=== PATIENT | female | born 1945 | race Caucasian/White ===

== ENCOUNTER 2023-07-24 09:09 | Inpatient (IN) | payer MEDICARE, OTHER ==
[2023-07-24] VITALS (8 sets, daily range): BP systolic 123–137; BP diastolic 54–76; TEMP 97.9–99; O2SAT 91–98
[~2023-07-24] VITALS: Ht 154.9 cm; Wt 81.2 kg
[2023-07-24] MEDS: IPRATROPIUM NEB FS 0.5 MG/2.5 ML AMPUL.NEB NEB ONE (09:33)
[2023-07-24] MEDS: ALBUTEROL FS 2.5 MG/3 ML VIAL.NEB NEB ONE (09:33)
[2023-07-24] MEDS ORDERED: IPRATROPIUM NEB FS 0.5 MG/2.5 ML AMPUL.NEB ONE (09:35)
[2023-07-24] MEDS ORDERED: ALBUTEROL FS 2.5 MG/3 ML VIAL.NEB ONE (09:35)
[2023-07-24 09:45] LABS: BASOPHILS % (AUTO) 0.8 % (0.0-2.0); EOSINOPHILS # (AUTO) 0.1 K/uL (0.0-0.7); EOSINOPHILS % (AUTO) 1.8 % (0.0-6.0); HEMATOCRIT 44 % (33-45); HEMOGLOBIN 15.1 g/dL (11.5-14.8); LYMPHOCYTES # (AUTO) 1.2 K/uL (0.8-4.8); LYMPHOCYTES % (AUTO) 22.4 % (20.0-44.0); MEAN CORPUSCULAR HEMOGLOBIN 30 PG (26.0-33.0); MEAN CORPUSCULAR HGB CONC 34 g/dl (31.0-36.0); MEAN CORPUSCULAR VOLUME 89 fL (82-100); MONOCYTES # (AUTO) 0.7 K/uL (0.1-1.30); MONOCYTES % (AUTO) 12.7 % (2.0-12.0); NEUTROPHILS # (AUTO) 3.3 K/uL (1.8-8.9); NEUTROPHILS % (AUTO) 62.3 % (43.0-81.0); PLATELET COUNT (AUTO) 207 K/uL (150-450); RED BLOOD CELL COUNT(AUTO) 4.97 MIL/uL (4.0-5.2); RED CELL DISTRIBUTION WIDTH 14.1 % (11.5-15.0); WHITE BLOOD COUNT (AUTO) 5.2 K/uL (4.3-11.0)
[2023-07-24 09:56] LABS: CALCIUM, SERUM 8.9 mg/dL (8.5-10.1); CREATININE 0.8 mg/dL (0.6-1.3); POTASSIUM 3.4 mmol/L (3.5-5.1)
[2023-07-24 10:07] LABS: LACTIC ACID 1.1 mmol/L (0.4-2.0)
[2023-07-24 10:37] LABS: NT-PRO BNP 310 pg/mL (0-125)
[2023-07-24] MEDS ORDERED: AZEL137S7 BNOSTRILS (11:20)
[2023-07-24] MEDS ORDERED: THYR90TA PO (11:20)
[2023-07-24] MEDS ORDERED: CARV25TA2 PO (11:20)
[2023-07-24] MEDS ORDERED: GUAI600T53 PO (11:20)
[2023-07-24] MEDS ORDERED: SEMA1PEN SQ (11:20)
[2023-07-24] MEDS ORDERED: MONT10TA22 PO (11:20)
[2023-07-24] MEDS ORDERED: LEVA1.2528 IH (11:20)
[2023-07-24] MEDS ORDERED: CYAN100T9 PO (11:20)
[2023-07-24] MEDS ORDERED: BUDE10.22 INH (11:20)
[2023-07-24] MEDS ORDERED: ASPI-1169 PO (11:20)
[2023-07-24] MEDS ORDERED: FLUO40CA49 PO (11:20)
[2023-07-24] MEDS ORDERED: L. A1TAB10 PO (11:20)
[2023-07-24] MEDS ORDERED: VIT1CAPS9 PO (11:20)
[2023-07-24] MEDS ORDERED: CHOL200026 PO (11:20)
[2023-07-24] MEDS ORDERED: THEO300T46 PO (11:20)
[2023-07-24] MEDS ORDERED: OMEP20CA15 PO (11:20)
[2023-07-24] MEDS ORDERED: IOHEXOL-350 100 ML VIAL IV ONE (11:23)
[2023-07-24] MEDS ORDERED: ACETAMINOPHEN 325 MG TABLET PO PRN (13:30)
[2023-07-24] MEDS ORDERED: MAGNESIUM HYDROXIDE 30 ML UDC PO PRN (13:30)
[2023-07-24] MEDS ORDERED: ZOLPIDEM TARTRATE 5 MG TABLET PO PRN (13:30)
[2023-07-24] MEDS ORDERED: ONDANSETRON HCL/PF 4 MG/2 ML VIAL IVP PRN (13:30)
[2023-07-24] MEDS ORDERED: MAG HYDROX/AL HYDROX/SIMETH 30 ML UDC PO PRN (13:30)
[2023-07-24] MEDS ORDERED: Z GUARD REMEDY 4 OZ OINT TP PRN (13:30)
[2023-07-24] MEDS: ENOXAPARIN SODIUM 40 MG/0.4 ML DISP.SYRIN SQ SCH (14:45)
[2023-07-24] MEDS: CEFTRIAXONE 1 G in IV D5W 50 ML IV SCH (17:53)
[2023-07-24] MEDS: AZITHROMYCIN 500 MG in IV D5W 250 ML IV SCH (18:25)
[2023-07-24] MEDS: ALBUTEROL FS 2.5 MG/3 ML VIAL.NEB NEB PRN (19:12)
[2023-07-24] MEDS: IPRATROPIUM NEB FS 0.5 MG/2.5 ML AMPUL.NEB NEB PRN (19:13)
[2023-07-24] MEDS: GUAIFENESIN/D-METHORPHAN HB 5 ML UDC PO PRN (21:01)
[2023-07-25] VITALS (12 sets, daily range): BP systolic 136–149; BP diastolic 58–88; TEMP 97.5–98.4; O2SAT 90–98
[2023-07-25 06:47] LABS: BASOPHILS % (AUTO) 0.7 % (0.0-2.0); EOSINOPHILS # (AUTO) 0.1 K/uL (0.0-0.7); EOSINOPHILS % (AUTO) 1.9 % (0.0-6.0); HEMATOCRIT 44 % (33-45); HEMOGLOBIN 14.7 g/dL (11.5-14.8); LYMPHOCYTES # (AUTO) 2.3 K/uL (0.8-4.8); LYMPHOCYTES % (AUTO) 43.6 % (20.0-44.0); MEAN CORPUSCULAR HEMOGLOBIN 31 PG (26.0-33.0); MEAN CORPUSCULAR HGB CONC 34 g/dl (31.0-36.0); MEAN CORPUSCULAR VOLUME 90 fL (82-100); MONOCYTES # (AUTO) 0.8 K/uL (0.1-1.30); MONOCYTES % (AUTO) 15.3 % (2.0-12.0); NEUTROPHILS # (AUTO) 2.1 K/uL (1.8-8.9); NEUTROPHILS % (AUTO) 38.5 % (43.0-81.0); PLATELET COUNT (AUTO) 191 K/uL (150-450); RED BLOOD CELL COUNT(AUTO) 4.84 MIL/uL (4.0-5.2); RED CELL DISTRIBUTION WIDTH 14.2 % (11.5-15.0); WHITE BLOOD COUNT (AUTO) 5.3 K/uL (4.3-11.0)
[2023-07-25 07:08] LABS: CALCIUM, SERUM 9.2 mg/dL (8.5-10.1); CREATININE 0.7 mg/dL (0.6-1.3); MAGNESIUM 2.3 mg/dL (1.8-2.4); PHOSPHORUS 3.3 mg/dL (2.5-4.9); POTASSIUM 3.2 mmol/L (3.5-5.1)
[2023-07-25 07:43] LABS: THYROID STIMULATING HORMONE 2.601 uIU/mL (0.358-3.74)
[2023-07-25] MEDS: PANTOPRAZOLE 40 MG TABLET.DR PO SCH (08:28)
[2023-07-25] MEDS: ASPIRIN 81 MG TAB.CHEW PO SCH (08:58)
[2023-07-25] MEDS: CARVEDILOL 12.5 MG TABLET PO SCH (09:01)
[2023-07-25] MEDS ORDERED: HYDROCODONE BIT/HOMATROPINE 5 ML UDC PO PRN (09:30)
[2023-07-25] MEDS: IPRATROPIUM NEB FS 0.5 MG/2.5 ML AMPUL.NEB NEB SCH (09:30)
[2023-07-25] MEDS ORDERED: ALBUTEROL FS 2.5 MG/3 ML VIAL.NEB NEB SCH (09:30)
[2023-07-25] MEDS ORDERED: THEOPHYLLINE ANHYDROUS 200 MG TAB.SR.12H PO SCH (10:00)
[2023-07-25] MEDS ORDERED: THEOPHYLLINE ANHYDROUS 100 MG TAB.SR.12H PO SCH (11:00)
[2023-07-25] MEDS: methylPREDNISolone SOD SUCC 125 MG/2ML VIAL IV SCH (11:09)
[2023-07-25] MEDS: MONTELUKAST SODIUM (10MG) 10 MG TABLET PO SCH (11:09)
[2023-07-25] MEDS: POTASSIUM CHLORIDE 20 MEQ TAB.PRT.SR PO SCH (11:09)
[2023-07-25] MEDS: THEOPHYLLINE ANHYDROUS 100 MG CAP.ER.24H PO SCH (12:41)
[2023-07-25] MEDS: ALBUTEROL HALF STRENGTH 1.25 MG/3 ML VIAL.NEB NEB SCH (12:42)
[2023-07-25] MEDS: AZITHROMYCIN 250 MG TABLET PO SCH (17:12)
[2023-07-25] MEDS: BENZONATATE 100 MG CAPSULE PO PRN (20:09)
[2023-07-26] VITALS: BP 141/67; TEMP 97.9; O2SAT 95
[2023-07-26 04:00] VITALS: BP 145/71; TEMP 97.9; O2SAT 95
[2023-07-26 06:52] LABS: CREATININE 0.7 mg/dL (0.6-1.3); MAGNESIUM 2.1 mg/dL (1.8-2.4); PHOSPHORUS 3.1 mg/dL (2.5-4.9)
[2023-07-26 06:57] LABS: BASOPHILS % (AUTO) 0.2 % (0.0-2.0); HEMATOCRIT 43 % (33-45); HEMOGLOBIN 14.7 g/dL (11.5-14.8); LYMPHOCYTES # (AUTO) 1.1 K/uL (0.8-4.8); LYMPHOCYTES % (AUTO) 21.8 % (20.0-44.0); MEAN CORPUSCULAR HEMOGLOBIN 31 PG (26.0-33.0); MEAN CORPUSCULAR HGB CONC 34 g/dl (31.0-36.0); MEAN CORPUSCULAR VOLUME 89 fL (82-100); MONOCYTES # (AUTO) 0.3 K/uL (0.1-1.30); MONOCYTES % (AUTO) 5.9 % (2.0-12.0); NEUTROPHILS # (AUTO) 3.6 K/uL (1.8-8.9); NEUTROPHILS % (AUTO) 72.1 % (43.0-81.0); PLATELET COUNT (AUTO) 202 K/uL (150-450); RED BLOOD CELL COUNT(AUTO) 4.79 MIL/uL (4.0-5.2); RED CELL DISTRIBUTION WIDTH 13.8 % (11.5-15.0); WHITE BLOOD COUNT (AUTO) 5.1 K/uL (4.3-11.0)
[2023-07-26 07:30] VITALS: BP 157/64; TEMP 97.7; O2SAT 94
[2023-07-26] MEDS ORDERED: BENZ-13 PO (10:28)
[2023-07-26] MEDS ORDERED: PRED20TA PO (10:28)
[2023-07-26] MEDS ORDERED: DOXY-326 PO (10:28)
[2023-07-26 13:00] VITALS: O2SAT 95
[2023-07-26 13:11] VITALS: O2SAT 98
[2023-07-26 16:18] VITALS: BP 139/67
[2023-07-26 22:00] LABS: ABG BASE EXCESS 2.8 mmol/L; ABG OXYGEN SATURATION 91.1 % (92.0-98.5); ABG PCO2 37.5 mmHg (35.0-45.0); ABG PH 7.466 (7.350-7.450); ABG PO2 58.1 mmHg (75.0-100.0); ABG TOTAL HEMOGLOBIN 16.1 G/dL (12.0-16.0); AaDO2 46.7 mmHg; COHb 0.2 % (0.5-1.5); MetHb 0.4 % (0.0-1.5); O2Hb 90.6 % (94.0-97.0); SITE, ABG Right Radial; VENT MODE, BG RA 21%
== END 2023-07-26 17:15 | disposition home health service (06) | DRG 189 ==
LOC: ER 09:10 → TELE 12:17 → MED 07-26 13:08
PROVIDERS: ADMIT Student in an Organized Health Care Education/Training Program; ATTEND Nurse Practitioner Acute Care
DX: J96.01 Acute respiratory failure with hypoxia (principal); I50.23 Acute on chronic systolic (congestive) heart failure; E87.1 Hypo-osmolality and hyponatremia; J45.901 Unspecified asthma with (acute) exacerbation; E11.9 Type 2 diabetes mellitus without complications; E66.9 Obesity, unspecified; E87.6 Hypokalemia; I25.5 Ischemic cardiomyopathy; Z87.891 Personal history of nicotine dependence; Z88.0 Allergy status to penicillin; R94.31 Abnormal electrocardiogram [ECG] [EKG]; Z79.84 Long term (current) use of oral hypoglycemic drugs; J20.8 Acute bronchitis due to other specified organisms; I34.0 Nonrheumatic mitral (valve) insufficiency; Z68.33 Body mass index [BMI] 33.0-33.9, adult
CPT/HCPCS: 36415; 36600; 71045-TC; 80048-TC; 80061-TC; 82803-TC; 83605-TC; 83735-TC; 83880; 84100-TC; 84439-TC; 84443-TC; 84484-TC; 85025-TC; 87040-TC; 93307-TC; 94761-TC; 94799-TC; A4223; G0378; J0456; J0696; J1650; J2919; J7050; J7060; Q9967